=== PATIENT | female | born 1955 | race American Indian/Alaskan Native ===

== ENCOUNTER 2017-06-16 15:01 | Emergency (ER) | payer MEDICARE ==
[2017-06-16 16:35] VITALS: BP 176/79
[2017-06-16] MEDS ORDERED: TYLENOL #3 PO ONE (16:56)
--- NOTE | 2017-06-16 17:16 | Emergency Department Report ---
HPI - General Chief Complaint: Extremity Injury, Lower Time Seen by Provider: 06/16/17 16:48 - HPI HPI: The patient is a 61-year-old female whom presents for evaluation of right knee pain. The patient reports right knee pain after a fall earlier today, ache in quality, currently 5/10 severity, worsened with movement or weightbearing. She denies trauma or injury to the head, headache, neck pain, back pain, chest pain , abdominal pain, flank pain, pain to the other extremities, slurred speech, facial droop, paresthesias, focal motor deficit, or seizure-like activity. ED Past Medical Hx - Past Medical History Hx Hypertension: Yes Hx Diabetes: Yes - Surgical History Hx Cholecystectomy: Yes Additional Surgical History: morbid obesity, uses walker-needs bilat knee replacement - Social History Smoking Status: Never Smoker Substance Use Type: None - Medications Home Medications: Home Medications Medication Instructions Recorded Confirmed Last Taken Type cloNIDine 0.1 mg PO DAILY 03/26/15 03/26/15 08/22/16 History glipiZIDE 10 mg PO DAILY 03/26/15 03/26/15 Unknown History metFORMIN 1,000 PO 08/25/16 08/22/16 History ALBUTEROL Inhaler [ProAir HFA 1 puff IH QID 30 Days inha 08/26/16 Unknown Rx Inhaler] Aspirin [Aspirin BABY CHEW TAB] 81 mg PO QDAY #30 tab.chew 08/26/16 Unknown Rx Fluticasone [Flonase] 1 spray NS QDAY #1 bottle 08/26/16 Unknown Rx amLODIPine [Norvasc] 10 mg PO QDAY #30 tablet 08/26/16 Unknown Rx cloNIDine [Catapres] 0.1 mg PO Q12HR #60 tablet 08/26/16 Unknown Rx traMADol [Ultram 50 MG tab] 50 mg PO Q6HR PRN #10 tablet 06/16/17 Unknown Rx ED Review of Systems ROS: Stated complaint: FALL Other details as noted in HPI Constitutional: denies: fever ENT: denies: throat or neck pain Respiratory: denies: cough, shortness of breath Cardiovascular: denies: chest pain Endocrine: denies unexplained weight loss or gain Gastrointestinal: denies: abdominal pain, nausea Genitourinary: denies: dysuria Musculoskeletal: reports right knee pain denies: leg swelling Skin: denies: rash Neurological: denies: headache Hematological/Lymphatic: denies: easy bleeding or easy bruising Psych: denies sadness or hopelessness Physical Exam - Physical Exam Vital Signs: Vital Signs 06/16/17 16:30 Temperature 98.1 F Pulse Rate 84 Respiratory 18 Rate Blood Pressure 176/79 O2 Sat by Pulse 99 Oximetry Physical Exam: General: well-nourished, well-developed, no acute distress Head: Normocephalic, atraumatic Eyes: normal sclera ENT: Mucous membranes are pink and moist Neck: trachea midline, neck supple, No neck stiffness, no cervical adenopathy Respiratory: Breath sounds equal bilaterally, no wheezing, rales, or rhonchi Cardio: S1 and S2 present, no murmurs, rubs, gallops, capillary refill is brisk Abdomen: Normoactive bowel sounds, soft abdomen, no tenderness, no flank tenderness Musc: Right knee medial joint line tenderness to palpation present, no obvious swelling or effusion, no redness, warmth, crepitus, Brandon's and posterior drawer sign are negative, no LCL or MCL laxity, no obvious deformity, No pitting edema in the legs Skin: No rash Neuro: no facial drooping, normal speech Psych: Normal affect ED Course Vital Signs 06/16/17 16:30 Temperature 98.1 F Pulse Rate 84 Respiratory 18 Rate Blood Pressure 176/79 O2 Sat by Pulse 99 Oximetry ED Medical Decision Making - Medical Decision Making The patient was seen and examined by myself. The patient is placed on a wired sweatband cutter and continuous pulse ox. On initial evaluation, the patient was found to be in no distress. Evaluation orders were placed. The patient is given a tablet of Tylenol 3 for pain. X-ray of the right is negative for acute fracture or dislocation. The patient was reevaluated and reported that their symptoms were markedly improved. The patient is stable for discharge with outpatient follow-up. The patient is given follow-up and return instructions. The patient expressed understanding and agreed with the plan. The patient is discharged in stable condition. Critical care attestation.: If time is entered above; I have spent that time in minutes in the direct care of this critically ill patient, excluding procedure time. ED Disposition Clinical Impression: Right knee pain Qualifiers: Chronicity: acute Qualified Code(s): M25.561 - Pain in right knee Disposition: DC-01 TO HOME OR SELFCARE Is pt being admited?: No Does the pt Need Aspirin: No Condition: Stable Instructions: Arthralgia (ED), Knee Sprain (ED), Knee Immobilizer (ED) Prescriptions: traMADol [Ultram 50 MG tab] 50 mg PO Q6HR PRN #10 tablet PRN Reason: Pain Referrals: PRIMARY CAREMD [Primary Care Provider] - 3-5 Days NORMAN SYKES MD [Staff Physician] - 3-5 Days Time of Disposition: 16:59
--- NOTE | 2017-06-16 18:24 | XRay Report ---
FINAL REPORT EXAM: XR KNEE 3V RT HISTORY: right knee pain s/p fall TECHNIQUE: Three views of the right knee. PRIORS: None. FINDINGS: No fracture. No dislocation. Normal mineralization. No soft tissue swelling. A nonspecific soft tissue calcification projects anterior to the proximal tibia. No joint effusion. Large tricompartment osteophyte formations are seen. There is joint space narrowing of the medial compartment. IMPRESSION: 1. No acute right knee abnormality. 2. Severe osteoarthritis of the right knee.
== END 2017-06-16 20:45 | disposition home or self-care (01) ==
LOC: ED 15:01
DX: M25.561 Pain in right knee (principal); I10 Essential (primary) hypertension; E11.9 Type 2 diabetes mellitus without complications; Z79.82 Long term (current) use of aspirin
CPT/HCPCS: 99284

== ENCOUNTER 2019-06-28 19:46 | Emergency (ER) | payer MEDICARE ==
--- NOTE | 2019-06-28 20:22 | Event Note ---
ED Screening Note Date of service: 06/28/19 Time: 20:21 ED Screening Note: 63 y o presents with feeling ofpressure on her head, states no pain but feels like an elephant is sitting on her head This initial assessment/diagnostic orders/clinical plan/treatment(s) is/are subject to change based on patients health status, clinical progression and re- assessment by fellow clinical providers in the ED. Further treatment and workup at subsequent clinical providers discretion. Patient/guardian urged not to elope from the ED as their condition may be serious if not clinically assessed and managed. Initial orders include: ct? main side eval
[2019-06-28] MEDS ORDERED: KETOROLAC 60 MG/2 ML INJ IM ONE (21:37)
--- NOTE | 2019-06-28 22:09 | Cat Scan Report ---
CT head/brain wo con INDICATION / CLINICAL INFORMATION: 63 years Female; head. TECHNIQUE: Routine CT head without contrast. All CT scans at this location are performed using CT dos e reduction for ALARA by means of automated exposure control. COMPARISON: None. FINDINGS: BRAIN / INTRACRANIAL CONTENTS: No acute hemorrhage, mass effect, midline shift, hydrocephalus, or acu te, large territorial infarct. No chronic infarct or atrophy appreciated. There are mild areas of decreased attenuation in the white matter of the cerebral hemispheres. These are nonspecific findings and may be related to microangiopathy (hypertension, diabetes, atheroscleros is), given the patient's age. CRANIOCERVICAL JUNCTION: No significant abnormality. ORBITS: No significant abnormality of visualized orbits. SINUSES / MASTOIDS: No significant abnormality the visualized paranasal sinuses or mastoid air cells. ADDITIONAL FINDINGS: None. IMPRESSION: 1. No focal mass, hemorrhage, hydrocephalus, or acute, large territorial infarct. Signer Name: Peña Yadav MD, III Signed: 06/28/2019 10:05 PM Workstation Name: [id number]
--- NOTE | 2019-06-29 00:33 | Emergency Department Report ---
ED Headache HPI - General Chief Complaint: Headache Stated Complaint: PRESSURE ON HEAD Time Seen by Provider: 06/28/19 21:23 Source: patient Exam Limitations: no limitations - History of Present Illness Initial Comments: 63-year-old female with a past medical history of hypertension diabetes presents to Hospital complaints of headache that started yesterday morning. Patient was awake when headache started. Pain is described as it 10/10 pressure to the top of the head. She states that it feels like an elephant is on her head. Pain is better when lying supine and worse with sitting up. Patient has not taken any pain medication for the headache. She denies head trauma, neck pain, blurred vision, nausea, vomiting, focal weakness, or focal numbness. She also denies hi story of previous headaches. She denies anticoagulant use including aspirin. Allergies/Adverse Reactions: Allergies meperidine HCl [From Demerol] Allergy (Verified 03/26/15 09:42) Unknown Home Medications: Ambulatory Orders cloNIDine 0.1 mg PO DAILY 03/26/15 glipiZIDE 10 mg PO DAILY 03/26/15 metFORMIN 1,000 PO 08/25/16 Albuterol INH(or & Nicu Only) [ProAir HFA Inhaler] 1 puff IH QID 30 Days inha 08/26/16 Aspirin [Aspirin BABY CHEW TAB] 81 mg PO QDAY #30 tab.chew 08/26/16 Fluticasone [Flonase] 1 spray NS QDAY #1 bottle 08/26/16 amLODIPine 10 mg PO QDAY #30 tablet 08/26/16 cloNIDine [Catapres] 0.1 mg PO Q12HR #60 tablet 08/26/16 traMADoL [Ultram 50 MG tab] 50 mg PO Q6HR PRN #10 tablet 06/16/17 Butalb/Acetaminophen/Caffeine [Fioricet 50-300-40 mg CAP] 1 cap PO Q6HR PRN #20 cap 06/29/19 Ibuprofen [Motrin] 800 mg PO Q8HR PRN #30 tablet 06/29/19 ED Review of Systems ROS: Stated complaint: PRESSURE ON HEAD Other details as noted in HPI Comment: All other systems reviewed and negative ED Past Medical Hx - Past Medical History Hx Hypertension: Yes Hx Diabetes: Yes - Surgical History Hx Cholecystectomy: Yes Additional Surgical History: morbid obesity, uses walker-needs bilat knee replacement - Social History Smoking Status: Never Smoker Substance Use Type: None - Medications Home Medications: Home Medications Medication Instructions Recorded Confirmed Last Taken Type cloNIDine 0.1 mg PO DAILY 03/26/15 03/26/15 08/22/16 History glipiZIDE 10 mg PO DAILY 03/26/15 03/26/15 Unknown History metFORMIN 1,000 PO 08/25/16 08/22/16 History Albuterol INH(or & Nicu Only) 1 puff IH QID 30 Days inha 08/26/16 Unknown Rx [ProAir HFA Inhaler] Aspirin [Aspirin BABY CHEW TAB] 81 mg PO QDAY #30 tab.chew 08/26/16 Unknown Rx Fluticasone [Flonase] 1 spray NS QDAY #1 bottle 08/26/16 Unknown Rx amLODIPine 10 mg PO QDAY #30 tablet 08/26/16 Unknown Rx cloNIDine [Catapres] 0.1 mg PO Q12HR #60 tablet 08/26/16 Unknown Rx traMADoL [Ultram 50 MG tab] 50 mg PO Q6HR PRN #10 tablet 06/16/17 Unknown Rx Butalb/Acetaminophen/Caffeine 1 cap PO Q6HR PRN #20 cap 06/29/19 Unknown Rx [Fioricet 50-300-40 mg CAP] Ibuprofen [Motrin] 800 mg PO Q8HR PRN #30 tablet 06/29/19 Unknown Rx ED Physical Exam - General Limitations: Physical Limitation - Other Other exam information: General: No limitations, patient is alert in no acute distress Head exam: Atraumatic, normocephalic Eyes exam: Normal appearance, pupils equal and reactive to light, extraocular movements intact, lateral visual arias intact ENT: Moist mucous membrane Neck exam: Normal inspection, full range of motion, no nuchal rigidity Respiratory exam: Clear to auscultation bilateral, no wheezes, rales, crackles Cardiovascular: Normal rate and rhythm, positive systolic murmur Abdomen: Soft, nondistended, and nontender, with normal bowel sounds, no rebound, or guarding, Extremity:No Deformity Back: Normal Inspection Neurologic: Alert, oriented x3, speech clear, no gross motor or sensory deficit. [id number] function intact Psychiatric: normal affect, normal mood Skin: Warm, dry, intact ED Course Vital Signs 06/28/19 06/28/19 06/28/19 19:50 21:30 21:45 Temperature 98.4 F Pulse Rate 83 72 75 Respiratory 18 20 23 Rate Blood Pressure 172/92 132/75 Blood Pressure 120/79 [Left] O2 Sat by Pulse 96 98 98 Oximetry 06/28/19 06/28/19 06/28/19 21:50 22:00 22:15 Temperature Pulse Rate 75 74 Respiratory 18 17 26 H Rate Blood Pressure 127/101 146/81 Blood Pressure [Left] O2 Sat by Pulse 93 99 Oximetry 06/28/19 06/28/19 22:20 22:31 Temperature Pulse Rate 73 Respiratory 18 19 Rate Blood Pressure 144/57 Blood Pressure [Left] O2 Sat by Pulse 100 Oximetry ED Medical Decision Making - Radiology Data Radiology results: report reviewed CT head/brain wo con INDICATION / CLINICAL INFORMATION: 63 years Female; head. TECHNIQUE: Routine CT head without contrast. All CT scans at this location are performed using CT dose reduction for ALARA by means of automated exposure control. COMPARISON: None. FINDINGS: BRAIN / INTRACRANIAL CONTENTS: No acute hemorrhage, mass effect, midline shift, hydrocephalus, or acute, large territorial infarct. No chronic infarct or atrophy appreciated. There are mild areas of decreased attenuation in the white matter of the cerebral hemispheres. These are nonspecific findings and may be related to microangiopathy (hypertension, diabetes, atherosclerosis), given the patient's age. CRANIOCERVICAL JUNCTION: No significant abnormality. ORBITS: No significant abnormality of visualized orbits. SINUSES / MASTOIDS: No significant abnormality the visualized paranasal sinuses or mastoid air cells. ADDITIONAL FINDINGS: None. IMPRESSION: 1. No focal mass, hemorrhage, hydrocephalus, or acute, large territorial infarct. - Medical Decision Making Patient received Toradol IM, ED with improvement in headache. CT head without acute findings DC with Fioricet and Motrin - Differential Diagnosis intracerebral hemorrhage, pressure, headache, tension headache, mass Critical Care Time: No Critical care attestation.: If time is entered above; I have spent that time in minutes in the direct care of this critically ill patient, excluding procedure time. ED Disposition Clinical Impression: Headache Disposition: DC-01 TO HOME OR SELFCARE Is pt being admited?: No Does the pt Need Aspirin: No Condition: Stable Instructions: Acute Headache (ED) Additional Instructions: Take the medication as prescribed. Follow-up with the doctor/clinic provided or with the doctor of your choice. Return if symptoms worsen as indicated by her discharge instructions. Prescriptions: Butalb/Acetaminophen/Caffeine [Fioricet 50-300-40 mg CAP] 1 cap PO Q6HR PRN #20 cap PRN Reason: Headache Ibuprofen [Motrin] 800 mg PO Q8HR PRN #30 tablet PRN Reason: Pain , Severe (7-10) Referrals: PRIMARY CAREMD [Referring] - 3-5 Days SUSI ZAMARRIPA MD [Staff Physician] - 3-5 Days Time of Disposition: 00:33
[2019-06-29 00:48] VITALS: BP 121/63
== END 2019-06-29 00:45 | disposition home or self-care (01) ==
LOC: ED 19:46
DX: R51 Headache (principal); I10 Essential (primary) hypertension; E11.9 Type 2 diabetes mellitus without complications; Z98.890 Other specified postprocedural states; Z79.1 Long term (current) use of non-steroidal anti-inflammatories (NSAID); Z79.899 Other long term (current) drug therapy; Z88.8 Allergy status to other drugs, medicaments and biological substances
CPT/HCPCS: 70450; 96372; 99283; J1885